=== PATIENT | female | born 1985 | race American Indian/Alaskan Native ===

== ENCOUNTER 2019-07-20 16:31 | Emergency (ER) | payer OTHER ==
[2019-07-20 17:35] VITALS: BP 102/56
[2019-07-20 18:46] LABS: Basophils # (Auto) 0.1 K/mm3 (0.0-0.1); Basophils % (Auto) 0.8 % (0.0-1.8); Eosinophils # (Auto) 0.1 K/mm3 (0.0-0.4); Eosinophils % (Auto) 1.3 % (0.0-4.3); Hematocrit 33.5 % (30.3-42.9); Hemoglobin 11.5 gm/dl (10.1-14.3); Lymphocytes # (Auto) 2.6 K/mm3 (1.2-5.4); Lymphocytes % (Auto) 24.5 % (13.4-35.0); Mean Corpuscular HGB Conc 34 % (30-34); Mean Corpuscular Volume 84 fl (79-97); Monocytes # (Auto) 0.4 K/mm3 (0.0-0.8); Monocytes % (Auto) 4.1 % (0.0-7.3); Platelet Count 218 K/mm3 (140-440); Red Blood Count 4.01 M/mm3 (3.65-5.03); Red Cell Distribution Width 14.9 % (13.2-15.2)
[2019-07-20 19:00] LABS: Alanine Aminotransferase 6 units/L (7-56); Albumin 4.6 g/dL (3.9-5); BUN/Creatinine Ratio 20; Blood Urea Nitrogen 10 mg/dL (7-17); Hemolysis Index 9
--- NOTE | 2019-07-20 19:13 | Emergency Department Report ---
ED Abdominal Pain HPI - General Chief Complaint: Abdominal Pain Stated Complaint: 3 MOS /ABD PAIN Time Seen by Provider: 07/20/19 18:47 Source: patient Mode of arrival: Ambulatory Limitations: No Limitations - History of Present Illness Initial Comments: There is a pleasant 34-year-old female presents to emergency department with a chief complaint of lower abdominal pain for the past 2 weeks. Patient describes as cramping. She reports associated dysuria, nausea, fatigue and breast tenderness. Last menstrual cycle was 04/07/2015. She did not take depressed S at home and this would be her eighth she is A0 L7 female VI RAINEY. SHE HAS A PAST MEDICAL HISTORY OF PSYCH AND MEDICATIONS INCLUDE HALDOL, SERTRALINE AND TRAZODONE. SHE DENIES ANY ALLERGIES TO MEDICATIONS. SHE HAS A PREVIOUS SURGERY OF HER LEFT KNEE. SHE NOTED ANY VAGINAL BLEEDING, FEVER, CHILLS, NIGHT SWEATS, HEADACHE, DIZZINESS, BLURRED VISION, CHEST PAIN, SHORTNESS OF BREATH ASSOCIATED SYMPTOMS. MD Complaint: abdominal pain Onset/Timin -: Gradual, week(s) Severity scale (0 -10): 7 Quality: cramping Consistency: intermittent Improves With: nothing Worsens With: nothing - Related Data Previous Rx's Medication Instructions Recorded Last Taken Type Doxylamine Succinate/Vit B6 1 each PO QHS #20 tablet. 07/20/19 Unknown Rx [Yaima Chaidez 10-10 mg Tablet] Nitrofurantoin Aurora/M-Cryst 100 mg PO Q12HR #14 capsule 07/20/19 Unknown Rx [Macrobid CAP] 147/Iron/Folic Acid 1 each PO DAILY #30 tablet 07/20/19 Unknown Rx [Azesco Tablet] Allergies Allergy/AdvReac Type Severity Reaction Status Date / Time No Known Allergies Allergy Unverified 07/20/19 16:32 ED Review of Systems ROS: Stated complaint: 3 MOS /ABD PAIN Other details as noted in HPI Comment: All other systems reviewed and negative Constitutional: denies: chills, fever Eyes: denies: eye pain, eye discharge, vision change ENT: denies: ear pain, throat pain Respiratory: denies: cough, shortness of breath, wheezing Cardiovascular: denies: chest pain, palpitations Endocrine: no symptoms reported Gastrointestinal: as per HPI, abdominal pain, nausea. denies: vomiting, diarrhea Genitourinary: as per HPI, dysuria. denies: urgency, discharge Musculoskeletal: denies: back pain, joint swelling, arthralgia Skin: denies: rash, lesions Neurological: denies: headache, weakness, paresthesias Psychiatric: denies: anxiety, depression Hematological/Lymphatic: denies: easy bleeding, easy bruising ED Past Medical Hx - Past Medical History Previous Medical History?: No - Surgical History Past Surgical History?: Yes Additional Surgical History: left knee surgery - Social History Smoking Status: Never Smoker Substance Use Type: None - Medications Home Medications: Home Medications Medication Instructions Recorded Confirmed Last Taken Type Doxylamine Succinate/Vit B6 1 each PO QHS #20 tablet.dr 07/20/19 Unknown Rx [Diclegis Dr 10-10 mg Tablet] Nitrofurantoin Aurora/M-Cryst 100 mg PO Q12HR #14 capsule 07/20/19 Unknown Rx [Macrobid CAP] 147/Iron/Folic Acid 1 each PO DAILY #30 tablet 07/20/19 Unknown Rx [Azesco Tablet] ED Physical Exam - General Limitations: No Limitations General appearance: alert, in no apparent distress - Head Head exam: Present: atraumatic, normocephalic - Eye Eye exam: Present: normal appearance, PERRL - ENT ENT exam: Present: normal exam, mucous membranes moist - Neck Neck exam: Present: normal inspection, full ROM. Absent: tenderness, meningismus - Respiratory Respiratory exam: Present: normal lung sounds bilaterally. Absent: respiratory distress, wheezes, rales, rhonchi, stridor, chest wall tenderness - Cardiovascular Cardiovascular Exam: Present: regular rate, normal rhythm. Absent: systolic murmur, diastolic murmur, rubs, gallop - GI/Abdominal GI/Abdominal exam: Present: soft, tenderness (mild suprapubic abdominal TTP. no rebound or guarding ), normal bowel sounds. Absent: distended, guarding, rebound, rigid - Extremities Exam Extremities exam: Present: normal inspection - Back Exam Back exam: Present: normal inspection - Neurological Exam Neurological exam: Present: alert, oriented X3 - Psychiatric Psychiatric exam: Present: normal affect, normal mood - Skin Skin exam: Present: warm, dry, intact, normal color. Absent: rash ED Course Vital Signs 07/20/19 17:32 Temperature 98.7 F Pulse Rate 70 Respiratory 16 Rate Blood Pressure 102/56 O2 Sat by Pulse 100 Oximetry ED Medical Decision Making - Lab Data Result diagrams: 07/20/19 18:20 07/20/19 18:20 Lab Results 07/20/19 07/20/19 07/20/19 Range/Units 18:20 18:20 18:20 WBC 10.7 (4.5-11.0) K/mm3 RBC 4.01 (3.65-5.03) M/mm3 Hgb 11.5 (10.1-14.3) gm/dl Hct 33.5 (30.3-42.9) % MCV 84 (79-97) fl MCH 29 (28-32) pg MCHC 34 (30-34) % RDW 14.9 (13.2-15.2) % Plt Count 218 (140-440) K/mm3 Lymph % (Auto) 24.5 (13.4-35.0) % Aurora % (Auto) 4.1 (0.0-7.3) % Eos % (Auto) 1.3 (0.0-4.3) % Baso % (Auto) 0.8 (0.0-1.8) % Lymph # 2.6 (1.2-5.4) K/mm3 Aurora # 0.4 (0.0-0.8) K/mm3 Eos # 0.1 (0.0-0.4) K/mm3 Baso # 0.1 (0.0-0.1) K/mm3 Seg Neutrophils % 69.3 (40.0-70.0) % Seg Neutrophils # 7.4 (1.8-7.7) K/mm3 Sodium 136 L (137-145) mmol/L Potassium 3.2 L (3.6-5.0) mmol/L Chloride 100.6 (98-107) mmol/L Carbon Dioxide 19 L (22-30) mmol/L Anion Gap 20 mmol/L BUN 10 (7-17) mg/dL Creatinine 0.5 L (0.7-1.2) mg/dL Estimated GFR > 60 ml/min BUN/Creatinine Ratio 20 % Glucose 108 H (65-100) mg/dL Calcium 9.0 (8.4-10.2) mg/dL Total Bilirubin 0.40 (0.1-1.2) mg/dL AST 18 (5-40) units/L ALT 6 L (7-56) units/L Alkaline Phosphatase 62 (35-129) units/L Total Protein 7.7 (6.3-8.2) g/dL Albumin 4.6 (3.9-5) g/dL Albumin/Globulin Ratio 1.5 % HCG, Qual Positive (Negative) Urine Color (Yellow) Urine Turbidity (Clear) Urine pH (5.0-7.0) Ur Specific [place] (1.003-1.030) Urine Protein (Negative) mg/dL Urine Glucose (UA) (Negative) mg/dL Urine Ketones (Negative) mg/dL Urine Blood (Negative) Urine Nitrite (Negative) Urine Bilirubin (Negative) Urine Urobilinogen (<2.0) mg/dL Ur Leukocyte Esterase (Negative) Urine WBC (Auto) (0.0-6.0) /HPF Urine RBC (Auto) (0.0-6.0) /HPF U Epithel Cells (Auto) (0-13.0) /HPF Urine Bacteria (Auto) (Negative) /HPF Urine Mucus /HPF 07/20/19 Range/Units 19:05 WBC (4.5-11.0) K/mm3 RBC (3.65-5.03) M/mm3 Hgb (10.1-14.3) gm/dl Hct (30.3-42.9) % MCV (79-97) fl MCH (28-32) pg MCHC (30-34) % RDW (13.2-15.2) % Plt Count (140-440) K/mm3 Lymph % (Auto) (13.4-35.0) % Aurora % (Auto) (0.0-7.3) % Eos % (Auto) (0.0-4.3) % Baso % (Auto) (0.0-1.8) % Lymph # (1.2-5.4) K/mm3 Aurora # (0.0-0.8) K/mm3 Eos # (0.0-0.4) K/mm3 Baso # (0.0-0.1) K/mm3 Seg Neutrophils % (40.0-70.0) % Seg Neutrophils # (1.8-7.7) K/mm3 Sodium (137-145) mmol/L Potassium (3.6-5.0) mmol/L Chloride (98-107) mmol/L Carbon Dioxide (22-30) mmol/L Anion Gap mmol/L BUN (7-17) mg/dL Creatinine (0.7-1.2) mg/dL Estimated GFR ml/min BUN/Creatinine Ratio % Glucose (65-100) mg/dL Calcium (8.4-10.2) mg/dL Total Bilirubin (0.1-1.2) mg/dL AST (5-40) units/L ALT (7-56) units/L Alkaline Phosphatase (35-129) units/L Total Protein (6.3-8.2) g/dL Albumin (3.9-5) g/dL Albumin/Globulin Ratio % HCG, Qual (Negative) Urine Color Yellow (Yellow) Urine Turbidity Slightly-cloudy (Clear) Urine pH 5.0 (5.0-7.0) Ur Specific [place] 1.031 H (1.003-1.030) Urine Protein <15 mg/dl (Negative) mg/dL Urine Glucose (UA) Neg (Negative) mg/dL Urine Ketones Neg (Negative) mg/dL Urine Blood Neg (Negative) Urine Nitrite Neg (Negative) Urine Bilirubin Neg (Negative) Urine Urobilinogen < 2.0 (<2.0) mg/dL Ur Leukocyte Esterase Neg (Negative) Urine WBC (Auto) 3.0 (0.0-6.0) /HPF Urine RBC (Auto) 4.0 (0.0-6.0) /HPF U Epithel Cells (Auto) 11.0 (0-13.0) /HPF Urine Bacteria (Auto) 1+ (Negative) /HPF Urine Mucus 2+ /HPF - Radiology Data Radiology results: report reviewed [facility] [address] [place] [address] Ultrasound Report Signed Patient: CLEVE BOONE MR#: [id number] : 1985 Acct:[id number] Age/Sex: 34 / F ADM Date: 07/20/19 Loc: ED Attending Dr: Ordering Physician: SHONNA RUSSO Date of Service: 07/20/19 Procedure(s): US OB >= 14 weeks Fetus Accession Number(s): [id number] cc: SHONNA RUSSO OBSTETRIC ULTRASOUND INDICATION: Pelvic pain COMPARISON: No prior relevant imaging studies are available for comparison. TECHNIQUE: Transabdominal imaging was performed. FINDINGS: Single viable intrauterine is identified. lie: Breech. Heart rate: 150 bpm. measurements are as follows: Biparietal diameter 3.4 cm, 16 weeks 3 days Head circumference 12.2 cm, 16 weeks 1 day Abdominal circumference 9.9 cm, 16 weeks 0 days Femur length 2.0 cm, 15 weeks 6 days Amniotic fluid index is subjectively within normal limits. No placental abnormalities are seen. Cervix is closed measuring 3-4 cm. CONCLUSION: Single viable intrauterine with sonographic gestational age of 16 weeks, 1 day. No abnormalities are identified. Signer Name: Carlos Aquino MD Signed: 07/20/2019 8:25 PM Workstation Name: [id number] Transcribed By: MUNA Dictated By: Carlos Aquino MD Electronically Authenticated By: Carlos Aquino MD Signed Date/Time: 07/20/192024 - Medical Decision Making Patient is nontoxic in no acute distress. Ultrasound shows a viable intrauterine measuring 16 weeks. Labs and urine returned relatively normal however patient was concerned about a potential UTI DT dysuria, urinary frequency and urinary urgency. There is a few white blood cells in her urine I will treat with Macrobid. Recommend starting vitamins and will start likely just for nausea. We'll give OB follow-up. Patient was instructed to return emergently changing worsening symptoms. All questions were answered. Did a lengthy discussion about the patient's psychiatric medications reports a calling her psychiatrist or the prescribing physician as soon as possible to determine the safety of using . Patient declined workup for STI and pelvic examination. She preferred to follow up with DISPATCH ASSOCIATE for this. - Differential Diagnosis threatened misscarriage, UTI, normal , ectopic Critical care attestation.: If time is entered above; I have spent that time in minutes in the direct care of this critically ill patient, excluding procedure time. ED Disposition Clinical Impression: Intrauterine , Dysuria Abdominal pain during Qualifiers: Trimester: second trimester Qualified Code(s): O26.892 - Other specified related conditions, second trimester; R10.9 - Unspecified abdominal pain Disposition: - TO HOME OR SELFCARE Is pt being admited?: No Does the pt Need Aspirin: No Condition: Stable Instructions: Abdominal Pain (ED) Prescriptions: Doxylamine Succinate/Vit B6 [Yaima Chaidez 10-10 mg Tablet] 1 each PO QHS #20 tablet. 147/Iron/Folic Acid [Azesco Tablet] 1 each PO DAILY #30 tablet Nitrofurantoin Aurora/M-Cryst [Macrobid CAP] 100 mg PO Q12HR #14 capsule Referrals: JUAN M MAYES MD [Staff Physician] - 3-5 Days Time of Disposition: 20:48
[2019-07-20 19:23] LABS: Bacteria,Urine 1+ /HPF (Negative); Bilirubin,Urine NEG (Negative); Blood,Urine NEG (Negative); Color,Urine Yellow (Yellow); Mucus,Urine 2+ /HPF; Protein,Urine <15 mg/dL mg/dL (Negative); Urobilinogen,Urine < 2.0 mg/dL (<2.0)
--- NOTE | 2019-07-20 20:30 | Ultrasound Report ---
OBSTETRIC ULTRASOUND INDICATION: Pelvic pain COMPARISON: No prior relevant imaging studies are available for comparison. TECHNIQUE: Transabdominal imaging was performed. FINDINGS: Single viable intrauterine is identified. lie: Breech. Heart rate: 150 bpm. measurements are as follows: Biparietal diameter 3.4 cm, 16 weeks 3 days Head circumference 12.2 cm, 16 weeks 1 day Abdominal circumference 9.9 cm, 16 weeks 0 days Femur length 2.0 cm, 15 weeks 6 days Amniotic fluid index is subjectively within normal limits. No placental abnormalities are seen. Cer vix is closed measuring 3-4 cm. CONCLUSION: Single viable intrauterine with sonographic gestational age of 16 weeks, 1 day. No abnormal ities are identified. Signer Name: Carlos Aquino MD Signed: 07/20/2019 8:25 PM Workstation Name: [id number]
== END 2019-07-20 22:00 | disposition home or self-care (01) ==
LOC: ED 16:31
DX: O26.892 Other specified pregnancy related conditions, second trimester (principal); R30.0 Dysuria; R10.30 Lower abdominal pain, unspecified; Z98.890 Other specified postprocedural states; Z79.899 Other long term (current) drug therapy; Z3A.16 16 weeks gestation of pregnancy
CPT/HCPCS: 36415; 76805; 80053; 81001; 84702; 84703; 85025

== ENCOUNTER 2020-01-02 15:45 | Inpatient (IN) | payer OTHER ==
[2020-01-02] MEDS ORDERED: OXYTOCIN 20 UNIT/1000ML DRIP 40,000 MILLIUNITS/2,000 ML BAG IV ONE (16:01)
[2020-01-02] MEDS ORDERED: MINERAL OIL 30 ML ORAL LIQD ONE (16:01)
[2020-01-02] MEDS ORDERED: LIDOCAINE (2%) 20 MG/1 ML VIAL 20 ML MDV INFILTRATI ONE ×2 (16:01→16:52)
[2020-01-02] MEDS ORDERED: LACTATED RINGERS 1,000 ML ONE (16:02)
[2020-01-02] MEDS ORDERED: AMPICILLIN/NS 2 GM/100 ML 2 GM/100 ML BAG IV ONE ×2 (16:03→18:00)
[2020-01-02] MEDS ORDERED: NalbUPHINE 10 MG/1 ML INJ IV PRN (16:52)
[2020-01-02] MEDS ORDERED: MINERAL OIL 30 ML ORAL LIQD PO PRN (16:52)
[2020-01-02] MEDS ORDERED: fentaNYL 100 MCG/2 ML INJ IV PRN (16:52)
[2020-01-02] MEDS ORDERED: PROMETHAZINE 25 MG TAB PO PRN ×2 (16:52→18:26)
[2020-01-02] MEDS ORDERED: ePHEDrine SULFATE 50 MG/1 ML INJ IV PRN ×2 (16:52→17:26)
[2020-01-02] MEDS ORDERED: TERBUTALINE 1 MG/1 ML INJ SUB-Q PRN (16:52)
[2020-01-02] MEDS ORDERED: NALOXONE 0.4 MG/1 ML INJ IV PRN (16:52)
[2020-01-02] MEDS ORDERED: TERBUTALINE 1 MG/1 ML INJ IVP PRN (16:52)
[2020-01-02] MEDS ORDERED: BUTORPHANOL 2 MG/1 ML INJ IV PRN (16:52)
[2020-01-02] MEDS ORDERED: OXYTOCIN DRIP 30 UNITS/500 ML BAG IV SCH ×2 (17:00)
[2020-01-02] MEDS ORDERED: OXYTOCIN 20 UNIT/1000ML DRIP 20 UNITS/1,000 ML BAG IV SCH (17:00)
[2020-01-02] MEDS ORDERED: LACTATED RINGERS 1,000 ML IV SCH (17:00)
[2020-01-02] MEDS ORDERED: DEXMEDETOMIDINE 200 MCG/2 ML VIAL IV ONE (17:01)
[2020-01-02] MEDS ORDERED: fentaNYL-BUPIV 2 MCG/ML-0.125% 200 MCG/100 ML BAG EPIDURAL ONE (17:02)
--- NOTE | 2020-01-02 17:02 | Progress Note ---
Assessment and Plan A/P IUP 39+6 weeks no care GBS unknown offer epirdural expect vaginal delivery Subjective - Subjective Date of service: 01/02/20 Principal diagnosis: labor Patient reports: movement normal, contractions, no new complaints, no loss of fluid, no vaginal bleeding Objective - Vital Signs Vital Signs: Vital Signs - 12hr 01/02/20 01/02/20 01/02/20 16:00 16:09 16:43 Temperature 99.3 F Pulse Rate 79 80 75 Respiratory 19 Rate Blood Pressure 140/70 145/69 Blood Pressure 140/70 [Left] O2 Sat by Pulse 99 Oximetry - Exam Breasts: normal Cardiovascular: Regular rate, Normal S1 Lungs: Clear to auscultation, Normal air movement Abdomen: Present: normal appearance, soft, normal bowel sounds. Absent: distention, tenderness, guarding Uterus: Present: normal, firm, fundal height above umbilicus. Absent: bogginess, tenderness FHR: category 1 Cervical Dilatation: 6 Extremities: normal Deep Tendon Reflex Grade: Normal +2
[2020-01-02] MEDS ORDERED: NALOXONE 2 MG/2 ML INJ IV PRN (17:26)
--- NOTE | 2020-01-02 17:26 | Anesthesia Consultation ---
Anesthesia Consult and Med Hx Date of service: 01/02/20 - Airway Anesthetic Teeth Evaluation: Good ROM Head & Neck: Adequate Mental/Hyoid Distance: Adequate Mallampati Class: Class II Intubation Access Assessment: Probably Good - Pulmonary Exam CTA: Yes - Cardiac Exam Cardiac Exam: RRR - Pre-Operative Health Status ASA Pre-Surgery Classification: ASA2 Proposed Anesthetic Plan: Epidural - Central Nervous System Hx Psychiatric Problems: Yes - Gastrointestinal Hx Gastroesophageal Reflux Disease: Yes
[2020-01-02 18:00] LABS: Basophils % (Auto) 0.3 % (0.0-1.8); Eosinophils # (Auto) 0.2 K/mm3 (0.0-0.4); Eosinophils % (Auto) 1.9 % (0.0-4.3); Hematocrit 35.2 % (30.3-42.9); Hemoglobin 11.3 gm/dl (10.1-14.3); Lymphocytes # (Auto) 2.1 K/mm3 (1.2-5.4); Lymphocytes % (Auto) 19.1 % (13.4-35.0); Mean Corpuscular HGB Conc 32 % (30-34); Mean Corpuscular Volume 76 fl (79-97); Monocytes # (Auto) 0.8 K/mm3 (0.0-0.8); Monocytes % (Auto) 7.1 % (0.0-7.3); Platelet Count 134 K/mm3 (140-440); Red Blood Count 4.63 M/mm3 (3.65-5.03); Red Cell Distribution Width 17.8 % (13.2-15.2)
[2020-01-02] MEDS ORDERED: fentaNYL-BUPIV 2 MCG/ML-0.125% 200 MCG/100 ML BAG EPIDURAL SCH (18:00)
[2020-01-02] MEDS ORDERED: ONDANSETRON 4 MG/2 ML INJ IV PRN (18:26)
[2020-01-02] MEDS ORDERED: MAGNESIUM HYDROXIDE (MOM) ORAL LIQD UDC PO PRN (18:26)
[2020-01-02] MEDS ORDERED: diphenhydrAMINE 25 MG CAP PO PRN (18:26)
[2020-01-02] MEDS ORDERED: PROMETHAZINE 25 MG RECT SUPP PR PRN (18:26)
[2020-01-02] MEDS ORDERED: WITCH HAZEL/ GLYCERIN PAD TP PRN (18:26)
[2020-01-02] MEDS ORDERED: ACETAMINOPHEN 325 MG TAB PO PRN (18:26)
[2020-01-02] MEDS ORDERED: LANOLIN/ZINC/DIMETHICONE (LANSINOH) 7 GM TP PRN (18:26)
[2020-01-02] MEDS ORDERED: HYDROcodone/ACETAMINOPHEN 5-325 MG TAB PO PRN (18:26)
--- NOTE | 2020-01-02 18:30 | Procedure Note ---
OB Delivery Note - Delivery Date of Delivery: 01/02/20 Surgeon: AALIYAH BLACKBURN Estimated blood loss: 100cc - Vaginal Delivery presentation: vertex Delivery position: OP Intrapartum events: no care Delivery induction: none Delivery augmentation: rupture of membranes Delivery monitor: external FHT, external uterine Route of delivery: Delivery placenta: spontaneous Delivery cord: 3 umbilical vessels Delivery laceration: 1st degree Delivery repair: vicryl Anesthesia: epidural Delivery comments: Patient was noted to be c/c/e and delivered a viable male in direct op at 1814 with a weight og 8 pounds 1 oz with Apgars 8 and 9. The baby placed on the muscogees chest with scuction with nurse. the cord was clamped and cut. The placenta delivered intact with 3 vessel cord at 181. EBL 100 cc. The perineum observed with periurethal tear not bleeding and repaired a 1st degree with 2-0 vicryl. Patient tolerated procedure well. - A at 1 minute: 8 at 5 minutes: 9 Gender: Male (8 pounds 1 oz)
[2020-01-02] MEDS: DOCUSATE SODIUM 100 MG CAP PO SCH (22:00)
[2020-01-03] MEDS: IBUPROFEN 600 MG TAB PO SCH ×3 (01:00→12:00)
[2020-01-03] MEDS: oxyCODONE /ACETAMINOPHEN 5-325MG TAB PO PRN (04:45)
[2020-01-03] MEDS ORDERED: MEASLES, MUMPS & RUBELLA 12,500 UNIT/0.5 ML VACCINE SUB-Q ONE (06:00)
[2020-01-03] MEDS ORDERED: DIPHtheria,PERTUSSIS(ACELL),TETANUS VACCINE/PF 0.5 ML VIAL IM ONE (06:00)
[2020-01-03 06:36] LABS: Hematocrit 31.5 % (30.3-42.9); Hemoglobin 10.2 gm/dl (10.1-14.3)
--- NOTE | 2020-01-03 08:38 | Progress Note ---
Assessment and Plan A: PPD1 s/p No care, unstable housing Vital signs and labs stable P: Routine pp care Case management consult Anticipate d/c to home on PPD2 Subjective - Subjective Date of service: 01/03/20 Principal diagnosis: labor Interval history: PPD1 s/p Patient reports: appetite normal, voiding normally, pain well controlled, ambulating normally, other (large bleeding at 0600 in the toilet, no current trickling) [place]: doing well, bottle feeding Objective - Vital Signs Latest vital signs: Vital Signs Temp Pulse Resp BP BP BP Pulse Ox 01/03/20 07:36 98.4 F 70 18 131/77 99 01/03/20 04:23 98.0 F 73 16 124/54 98 01/03/20 00:19 98.5 F 86 18 115/64 96 01/02/20 21:05 98.8 F 78 18 128/58 100 01/02/20 20:42 98.1 F 79 124/59 124/59 01/02/20 20:07 78 129/71 01/02/20 19:51 80 126/61 01/02/20 19:49 18 114/60 01/02/20 19:36 77 114/60 01/02/20 19:22 74 107/56 01/02/20 19:06 78 106/58 01/02/20 18:52 75 108/58 01/02/20 18:45 76 99/54 01/02/20 18:38 74 87/51 05 18:36 73 86/43 01/02/20 18:22 74 94/46 01/02/20 18:08 78 107/59 01/02/20 18:02 80 111/52 01/02/20 17:51 78 97/49 01/02/20 17:36 78 113/56 01/02/20 17:34 79 112/57 01/02/20 17:32 89 99/50 01/02/20 17:30 98.9 F 87 112/60 01/02/20 17:28 80 123/59 01/02/20 17:26 76 124/60 01/02/20 17:24 75 133/62 01/02/20 17:22 90 149/69 01/02/20 17:21 76 158/71 01/02/20 17:18 107 H 146/110 01/02/20 17:15 107 H 141/102 01/02/20 17:14 86 140/70 01/02/20 17:12 103 H 126/72 01/02/20 17:10 93 H 132/80 01/02/20 16:43 75 145/69 01/02/20 16:09 80 140/70 01/02/20 16:00 99.3 F 79 19 140/70 99 Intake and Output 01/02/20 01/03/20 01/03/20 23:59 07:59 15:59 Intake Total 720 120 Output Total 400 Balance 320 120 Intake: Oral 120 Intake, Free Water 720 Output: Urine 400 Void 400 Other: Total, Intake Amount 120 Total, Output Amount 400 Weight 197 lb Estimated Blood Loss 200 - Exam Lungs: Present: Normal air movement Abdomen: Present: soft. Absent: distention Uterus: Present: firm, fundal height below umbilicus. Absent: bogginess Extremities: Present: normal - Labs Labs: Abnormal lab results 01/02/20 Range/Units 16:25 WBC 11.1 H (4.5-11.0) K/mm3 MCV 76 L (79-97) fl MCH 24 L (28-32) pg RDW 17.8 H (13.2-15.2) % Plt Count 134 L (140-440) K/mm3 Seg Neutrophils % 71.6 H (40.0-70.0) % Seg Neutrophils # 7.9 H (1.8-7.7) K/mm3
[2020-01-03] MEDS: DOCUSATE SODIUM 100 MG CAP PO SCH ×2 (09:09→22:20)
[2020-01-03] MEDS ORDERED: PRENATAL VIT27-FE FUMARATE-FOLIC ACID VIT TAB PO SCH (10:00)
[2020-01-03 10:28] LABS: Amphetamine Screen,Urine PRESUMPTIVE NEGATIVE; Benzodiazepines Screen,Urine PRESUMPTIVE NEGATIVE; Cannabinoid Screen,Urine PRESUMPTIVE NEGATIVE; Methadone Screen,Urine PRESUMPTIVE NEGATIVE; Opiate Screen,Urine PRESUMPTIVE NEGATIVE
[2020-01-03 10:54] LABS: Cocaine Screen,Urine PRESUMPTIVE POSITIVE
[2020-01-04] MEDS: IBUPROFEN 600 MG TAB PO SCH ×2 (00:15→05:42)
--- NOTE | 2020-01-04 08:26 | Progress Note ---
Assessment and Plan A: PPD2 s/p No care, UDS positive for cocaine Vital signs and labs stable P: Routine pp care Discharge to home today Infant d/c to be held per DFACS Subjective - Subjective Date of service: 01/04/20 Principal diagnosis: s/p Interval history: PPD2 s/p . S/p case management consult, infant's discharge to be held, disp with DFACS. Patient reports: appetite normal, voiding normally, pain well controlled, ambulating normally [place]: doing well, bottle feeding Objective - Vital Signs Latest vital signs: Vital Signs Temp Pulse Resp BP Pulse Ox 01/04/20 00:45 17 98 01/04/20 00:38 97.9 F 18 131/84 01/03/20 16:04 98.1 F 76 18 120/77 99 01/03/20 12:22 98.4 F 76 18 124/78 97 Intake and Output 01/03/20 01/04/20 01/04/20 23:59 07:59 15:59 Intake Total 900 Balance 900 Intake: Oral 360 Intake, Free Water 540 Other: Total, Intake Amount 360 # Voids Void 1 1 - Exam Lungs: Present: Normal air movement Abdomen: Present: soft. Absent: distention Uterus: Present: firm, fundal height below umbilicus. Absent: bogginess Extremities: Present: normal
--- NOTE | 2020-01-04 08:30 | Discharge Summary ---
Providers - Providers Date of Admission: 01/02/20 18:54 Date of discharge: 01/04/20 Attending physician: AALIYAH BLACKBURN MD 01/03/20 08:36 Consult to Case Management [CONS] Routine Services Needed at Discharge: Diesel Locomotive Engineer Notified:: N[place]ia Comment:: Unstable housing, no care Primary care physician: [employer] PRESCRIPTION CLERK Hospitalization Reason for admission: active labor, IUP at term Delivery: Episiotomy: none Laceration: 1st degree Other procedures: none complications: none Discharge diagnosis: IUP at term delivered Hospital course: Pt presented in active labor with no care. Delivery and course were uncomplicated. She was found to have a urine drug screen positive for cocaine. She met discharge criteria on PPD2 and was discharged in stable condition. Case management/DFACS held infant discharge. Condition at discharge: Good Disposition: DC-01 TO HOME OR SELFCARE Plan - Discharge Medications Prescriptions: Ibuprofen [Motrin 600 MG tab] 600 mg PO Q6H #60 tablet - Provider Discharge Summary Additional instructions: [] Smoking cessation referral if applicable(refer to patient education folder for contact #) [] Refer to [facility]'s [facility] Booklet Call your doctor immediately for: * Fever > 100.5 * Heavy vaginal bleeding ( >1 pad per hour) * Severe persistent headache * Shortness of breath * Reddened, hot, painful area to leg or breast * Drainage or odor from incision. * Keep incision clean and dry at all times and follow doctor's instructions regarding bathing/showering - Follow up plan Follow up: AALIYAH BLACKBURN MD [Staff Physician] - 14 Days (Please call [facility] human resources trainer to schedule appointment.)
[2020-01-04 09:32] VITALS: BP 126/63
[2020-01-04] MEDS: DOCUSATE SODIUM 100 MG CAP PO SCH (14:10)
[2020-01-04] MEDS: oxyCODONE /ACETAMINOPHEN 5-325MG TAB PO PRN (14:10)
== END 2020-01-04 15:00 | disposition home or self-care (01) | DRG 775 ==
LOC: TRG 15:45 → APU 15:51 → LD 15:56 → TRG 18:53 → LD 18:54 → OB 22:26
PROVIDERS: ADMIT Obstetrics & Gynecology; ATTEND Obstetrics & Gynecology
PROC: 10E0XZZ Delivery of Products of Conception, External Approach (ICD-10-PCS; principal; 2020-01-02)
PROC: 0HQ9XZZ Repair Perineum Skin, External Approach (ICD-10-PCS; 2020-01-02)
DX: O70.9 Perineal laceration during delivery, unspecified (principal); Z3A.39 39 weeks gestation of pregnancy; Z37.0 Single live birth
CPT/HCPCS: 36415; 80307; 85014; 85018; 85025; 86592; 86706; 86762; 86850; 86900; 86901; 87806; 88307; G0378; J0290; J2590; J3490; J7120

== ENCOUNTER 2020-11-13 16:54 | Emergency (ER) | payer SELFPAY ==
[2020-11-13 17:12] VITALS: BP 134/71
--- NOTE | 2020-11-13 18:25 | Emergency Department Report ---
ED ENT HPI - General Chief complaint: Earache Stated complaint: EAR PAIN Time Seen by Provider: 11/13/20 18:15 Source: patient Mode of arrival: Ambulatory Limitations: No Limitations - History of Present Illness Initial comments: Patient is a 35-year-old female that presents emergency room with complaints of left ear pain. Patient states started 3 days ago. Patient states her ear is tender to touch. Patient states the pain is an 8 out of 10. Patient states the pain is better with rest and worse with palpation. Patient denies fever and chills. Patient denies cough. Patient denies recent swimming. Patient states she has a slight amount of discharge from her left ear. Patient denies recent travel. Patient denies recent international travel. Patient denies exposure to the novel coronavirus. Patient denies sick contacts. Patient denies fever and chills. Patient denies cough. Patient denies diarrhea. Patient denies coming in contact with anybody with symptoms of the novel coronavirus. MD complaint: ear pain -: Sudden Location: L ear Severity: severe Severity scale (0 -10): 8 Quality: stabbing Consistency: constant Improves with: rest Worsens with: other Associated Symptoms: discharge from ear. denies: fever, cough, gum swelling, toothache, pain with swallowing, sore throat, tinnitus, hearing loss, rhinorrhea - Related Data Previous Rx's Medication Instructions Recorded Last Taken Type Ibuprofen [Motrin 600 MG tab] 600 mg PO Q6H #60 tablet 01/04/20 Unknown Rx Ofloxacin 0.3% [Floxin 0.3% Otic] 10 drops OT DAILY 7 Days #1 bottle 11/13/20 Unknown Rx Allergies Allergy/AdvReac Type Severity Reaction Status Date / Time No Known Allergies Allergy Verified 11/13/20 17:09 ED Dental HPI - General Chief complaint: Earache Stated complaint: EAR PAIN Time Seen by Provider: 11/13/20 18:20 Source: patient Mode of arrival: Ambulatory Limitations: No Limitations - Related Data Previous Rx's Medication Instructions Recorded Last Taken Type Ibuprofen [Motrin 600 MG tab] 600 mg PO Q6H #60 tablet 01/04/20 Unknown Rx Ofloxacin 0.3% [Floxin 0.3% Otic] 10 drops OT DAILY 7 Days #1 bottle 11/13/20 Unknown Rx Allergies Allergy/AdvReac Type Severity Reaction Status Date / Time No Known Allergies Allergy Verified 11/13/20 17:09 ED Review of Systems ROS: Stated complaint: EAR PAIN Other details as noted in HPI Constitutional: denies: chills, fever Eyes: denies: eye pain, eye discharge, vision change ENT: denies: ear pain, throat pain Respiratory: denies: cough, shortness of breath, wheezing Cardiovascular: denies: chest pain, palpitations Endocrine: no symptoms reported Gastrointestinal: denies: abdominal pain, nausea, diarrhea Genitourinary: denies: urgency, dysuria, discharge Musculoskeletal: denies: back pain, joint swelling, arthralgia Skin: denies: rash, lesions Neurological: denies: headache, weakness, paresthesias Psychiatric: denies: anxiety, depression Hematological/Lymphatic: denies: easy bleeding, easy bruising ED Past Medical Hx - Past Medical History Previous Medical History?: No - Surgical History Past Surgical History?: Yes Additional Surgical History: left knee surgery - Family History Family history: no significant - Social History Smoking Status: Never Smoker Substance Use Type: None - Medications Home Medications: Home Medications Medication Instructions Recorded Confirmed Last Taken Type Ibuprofen [Motrin 600 MG tab] 600 mg PO Q6H #60 tablet 01/04/20 Unknown Rx Ofloxacin 0.3% [Floxin 0.3% Otic] 10 drops OT DAILY 7 Days #1 bottle 11/13/20 Unknown Rx ED Physical Exam - General Limitations: No Limitations General appearance: alert, in no apparent distress - Head Head exam: Present: atraumatic, normocephalic - Eye Eye exam: Present: normal appearance - ENT ENT exam: Present: mucous membranes moist, TM's normal bilaterally, other - Expanded ENT Exam Expanded Ear exam: Present: other (Inflammation of the left ear canal with discharge.) Mouth exam: Present: normal external inspection Teeth exam: Present: normal inspection Throat exam: Positive: normal inspection - Neck Neck exam: Present: normal inspection, full ROM. Absent: tenderness, meningismus - Respiratory Respiratory exam: Present: normal lung sounds bilaterally. Absent: respiratory distress, wheezes, rales - Cardiovascular Cardiovascular Exam: Present: regular rate, normal rhythm. Absent: systolic murmur, diastolic murmur, rubs, gallop - GI/Abdominal GI/Abdominal exam: Present: soft, normal bowel sounds - Extremities Exam Extremities exam: Present: normal inspection - Back Exam Back exam: Present: normal inspection - Neurological Exam Neurological exam: Present: alert, oriented X3 - Psychiatric Psychiatric exam: Present: normal affect, normal mood - Skin Skin exam: Present: warm, dry, intact, normal color. Absent: rash ED Course Vital Signs 11/13/20 17:08 Temperature 98.1 F Pulse Rate 67 Respiratory 16 Rate Blood Pressure 134/71 O2 Sat by Pulse 99 Oximetry - Reevaluation(s) Reevaluation #1: I discussed all results and clinical findings with patient. I discussed plan of care with patient. Patient agrees with plan of care. Patient is stable for discharge. Patient will be discharged home. Patient given discharge instructions. Patient voiced understanding of discharge instructions. 11/13/20 18:27 ED Medical Decision Making - Medical Decision Making Patient is a 35-year-old female who presents emergency room with complaints of left ear pain. Patient had a full exam and the exam reveals left otitis externa. Patient is allergic to any medications. Patient's last menstrual period 3 weeks ago. Patient will be given eardrops. Patient given discharge instructions. Patient stable for discharge. Patient not require any further emergency medical treatment. . - Differential Diagnosis Otalgia, otitis media, otitis externa, swimmer's ear. Critical care attestation.: If time is entered above; I have spent that time in minutes in the direct care of this critically ill patient, excluding procedure time. ED Disposition Clinical Impression: Ear pain, left Otitis externa, left Qualifiers: Otitis externa type: unspecified type Chronicity: acute Qualified Code(s): H60.502 - Unspecified acute noninfective otitis externa, left ear Disposition: TO HOME OR SELFCARE Is pt being admited?: No Does the pt Need Aspirin: No Condition: Stable Instructions: Ear Drops, Adult, [id number], Otitis Externa Additional Instructions: Patient to follow-up with primary care in 2 to 3 days. Patient to avoid submerging of her left ear. Patient to try to keep the left ear clean and dry.. Patient to rest. Patient to increase water. Patient to avoid strenuous exercise or heavy lifting until cleared by SIMULATION DEVELOPER. Patient to take Tylenol or ibuprofen as needed for pain. Patient to take meds as directed. Patient to return to the ER if condition worsens, changes or new symptoms arise. Prescriptions: Ofloxacin 0.3% [Floxin 0.3% Otic] 10 drops OT DAILY 7 Days #1 bottle Referrals: PRIMARY CAREMD [Primary Care Provider] - 2-3 Days CHERI BHATIA MD [Staff Physician] - 2-3 Days Time of Disposition: 18:31
== END 2020-11-13 18:50 | disposition home or self-care (01) ==
LOC: ED 16:54
DX: H60.502 Unspecified acute noninfective otitis externa, left ear (principal); H92.02 Otalgia, left ear; Z79.899 Other long term (current) drug therapy; Z98.890 Other specified postprocedural states
CPT/HCPCS: 99282

== ENCOUNTER 2022-01-03 19:09 | Emergency (ER) | payer SELFPAY ==
--- NOTE | 2022-01-03 20:04 | XRay Report ---
CHEST 2 VIEWS INDICATION / CLINICAL INFORMATION: chest pain. COMPARISON: None available. FINDINGS: SUPPORT DEVICES: None. HEART / MEDIASTINUM: No significant abnormality. LUNGS / PLEURA: No significant pulmonary or pleural abnormality. No pneumothorax. ADDITIONAL FINDINGS: No significant additional findings. IMPRESSION: 1. No acute findings. Signer Name: Thanh Elias MD Signed: 01/03/2022 8:00 PM Workstation Name: [id number]
[2022-01-03 23:22] VITALS: BP 129/75
[2022-01-03] MEDS ORDERED: ASPIRIN 325 MG TAB PO ONE (23:37)
[2022-01-03] MEDS ORDERED: diphenhydrAMINE 25 MG CAP PO ONE (23:54)
[2022-01-03] MEDS ORDERED: predniSONE 20 MG TAB PO ONE (23:54)
[2022-01-03] MEDS ORDERED: FAMOTIDINE 20 MG TAB PO ONE (23:54)
[2022-01-04 00:25] LABS: Basophils % (Auto) 0.3 % (0.0-1.8); Eosinophils # (Auto) 0.3 K/mm3 (0.0-0.4); Eosinophils % (Auto) 4.4 % (0.0-4.3); Hematocrit 36.4 % (30.3-42.9); Hemoglobin 11.9 gm/dl (10.1-14.3); Lymphocytes # (Auto) 2.7 K/mm3 (1.2-5.4); Mean Corpuscular HGB Conc 33 % (30-34); Mean Corpuscular Volume 76 fl (79-97); Monocytes # (Auto) 0.4 K/mm3 (0.0-0.8); Monocytes % (Auto) 5.2 % (0.0-7.3); Platelet Count 152 K/mm3 (140-440); Red Blood Count 4.78 M/mm3 (3.65-5.03); Red Cell Distribution Width 14.6 % (13.2-15.2)
[2022-01-04 00:49] LABS: Alanine Aminotransferase 9 units/L (7-56); Albumin 4.6 g/dL (3.9-5); Blood Urea Nitrogen 8 mg/dL (7-17); Calcium 8.8 mg/dL (8.4-10.2); Hemolysis Index 6
[2022-01-04 00:53] LABS: BUN/Creatinine Ratio 11
--- NOTE | 2022-01-04 01:15 | Emergency Department Report ---
ED Chest Pain HPI - General Chief Complaint: Chest Pain Stated Complaint: CHEST PAIN PUI?: No Source: patient Mode of arrival: Ambulatory Limitations: No Limitations - History of Present Illness Initial Comments: Patient is a 36-year-old -[place] female with no past medical history who presents to the ED with persistent intermittent anterior chest chest wall pain for the last 5 months, worse with lifting and palpation. Patient also states that she has been taking [id number] medication with no relief. Patient states that prior to arrival in the ED the pain got worse after heavy lifting at work. Patient states that the pain radiates to the epigastric area occasionally. Patient denies shortness of breath, dizziness, syncope, headache, nausea and vomiting, abdominal pain, cough, sore throat, neck pain, headache, change in vision, fever and chills, numbness and tingling or weakness of upper extremities bilaterally. MD Complaint: chest pain -: Gradual, month(s) (5) Onset: during exertion, other (Heavy lifting) Pain Location: left chest Pain Radiation: none Severity: moderate Severity scale (0 -10): 5 Quality: aching, sharp Consistency: intermittent Improves With: rest Worsens With: exertion, inspiration, palpation, movement Context: other (Heavy lifting at work) re: denies: nausea, vomting, diaphoresis, dyspnea, sense of impending doom Other Symptoms: denies: cough, fever, syncope, rash, acid taste in mouth, leg swelling, palpitations, burping Treatments Prior to Arrival: none Aspirin use within the Past 7 Days: (0) No - Related Data On Oral Contraceptives: No Previous Rx's Medication Instructions Recorded Last Taken Type Ibuprofen [Motrin 600 MG tab] 600 mg PO Q6H #60 tablet 01/04/20 Unknown Rx Ofloxacin 0.3% [Floxin 0.3% Otic] 10 drops OT DAILY 7 Days #1 bottle 11/13/20 Unknown Rx Famotidine [Pepcid] 20 mg PO BID #60 tablet 01/04/22 Unknown Rx Ibuprofen [Motrin] 600 mg PO Q8H PRN #30 tablet 01/04/22 Unknown Rx diphenhydrAMINE [Benadryl CAP] 25 mg PO Q6HR PRN #30 capsule 01/04/22 Unknown Rx predniSONE [Deltasone] 40 mg PO QDAY #10 tab 01/04/22 Unknown Rx Allergies Allergy/AdvReac Type Severity Reaction Status Date / Time No Known Allergies Allergy Verified 11/13/20 17:09 Heart Score - HEART Score History: Slightly suspicious EKG: Normal Age: < 45 Risk factors: No known risk factors Troponin: < normal limit HEART Score: 0 - EKG Read Time Time EKG Completed: 19:31 EKG Read Time: 19:42 - Critical Actions Critical Actions: 0-3 pts:0.9-1.7%risk of adverse cardiac event.Candidate for d ischarge ED Review of Systems ROS: Stated complaint: CHEST PAIN Other details as noted in HPI Constitutional: denies: chills, fever Eyes: denies: eye pain, eye discharge, vision change ENT: denies: ear pain, throat pain Respiratory: denies: cough, shortness of breath, wheezing Cardiovascular: chest pain (Anterior chest pain). denies: palpitations Endocrine: no symptoms reported Gastrointestinal: denies: abdominal pain, nausea, vomiting, diarrhea Genitourinary: denies: urgency, dysuria, discharge Musculoskeletal: denies: back pain, joint swelling, arthralgia Skin: denies: rash, lesions Neurological: denies: headache, weakness, paresthesias Psychiatric: denies: anxiety, depression Hematological/Lymphatic: denies: easy bleeding, easy bruising ED Past Medical Hx - Past Medical History Previous Medical History?: No - Surgical History Past Surgical History?: Yes Additional Surgical History: left knee surgery - Social History Smoking Status: Current Every Day Smoker Substance Use Type: None - Medications Home Medications: Home Medications Medication Instructions Recorded Confirmed Last Taken Type Ibuprofen [Motrin 600 MG tab] 600 mg PO Q6H #60 tablet 01/04/20 Unknown Rx Ofloxacin 0.3% [Floxin 0.3% Otic] 10 drops OT DAILY 7 Days #1 bottle 11/13/20 Unknown Rx Famotidine [Pepcid] 20 mg PO BID #60 tablet 01/04/22 Unknown Rx Ibuprofen [Motrin] 600 mg PO Q8H PRN #30 tablet 01/04/22 Unknown Rx diphenhydrAMINE [Benadryl CAP] 25 mg PO Q6HR PRN #30 capsule 01/04/22 Unknown Rx predniSONE [Deltasone] 40 mg PO QDAY #10 tab 01/04/22 Unknown Rx ED Physical Exam - General Limitations: No Limitations General appearance: alert, in no apparent distress - Head Head exam: Present: atraumatic, normocephalic, normal inspection - Eye Eye exam: Present: normal appearance, PERRL, EOMI Pupils: Present: normal accommodation - ENT ENT exam: Present: normal exam, normal orophraynx, mucous membranes moist, TM's normal bilaterally, normal external ear exam - Neck Neck exam: Present: normal inspection, full ROM. Absent: tenderness - Respiratory Respiratory exam: Present: normal lung sounds bilaterally, chest wall tenderness (Palpable reproducible anterior chest wall tenderness). Absent: respiratory distress, wheezes, rales, stridor, accessory muscle use, decreased breath sounds, prolonged expiratory - Cardiovascular Cardiovascular Exam: Present: regular rate, normal rhythm, normal heart sounds. Absent: systolic murmur, diastolic murmur, rubs, gallop - GI/Abdominal GI/Abdominal exam: Present: soft, normal bowel sounds. Absent: tenderness, guarding, rigid, hyperactive bowel sounds, hypoactive bowel sounds, organomegaly - Extremities Exam Extremities exam: Present: normal inspection, full ROM, normal capillary refill - Back Exam Back exam: Present: normal inspection, full ROM. Absent: tenderness, CVA tenderness (R), CVA tenderness (L), muscle spasm, paraspinal tenderness, vertebral tenderness - Neurological Exam Neurological exam: Present: alert, oriented X3 - Psychiatric Psychiatric exam: Present: normal affect, normal mood, anxious - Skin Skin exam: Present: warm, dry, intact, normal color. Absent: rash ED Course Vital Signs 01/03/22 19:38 Temperature 98.6 F Pulse Rate 89 Respiratory 16 Rate Blood Pressure 129/75 O2 Sat by Pulse 99 Oximetry ED Medical Decision Making - Lab Data Result diagrams: 01/04/22 00:08 01/04/22 00:08 - EKG Data EKG shows normal: sinus rhythm Rate: normal - EKG Data Interpretation: normal EKG 01/06/22 07:02 EKG shows normal sinus rhythm with a ventricular rate of [address] or T wave abnormalities. - Radiology Data [facility] [address] [place] [address] XRay Report Signed Patient: CLEVE BOONE MR#: [id number] : 1985 Acct:[id number] Age/Sex: 36 / F ADM Date: 01/03/22 Loc: ED Attending Dr: Ordering Physician: DAILY GIVENS MD Date of Service: 01/03/22 Procedure(s): XR chest routine 2V Accession Number(s): [id number] cc: DAILY GIVENS MD Fluoro Time In Minutes: CHEST 2 VIEWS INDICATION / CLINICAL INFORMATION: chest pain. COMPARISON: None available. FINDINGS: SUPPORT DEVICES: None. HEART / MEDIASTINUM: No significant abnormality. LUNGS / PLEURA: No significant pulmonary or pleural abnormality. No pneumothorax. ADDITIONAL FINDINGS: No significant additional findings. IMPRESSION: 1. No acute findings. Signer Name: Thanh Arellano MD Signed: 01/03/2022 8:00 PM Workstation Name: [id number] Transcribed By: LEONARDO Dictated By: COBY ARELLANO MD Electronically Authenticated By: COBY ARELLANO MD Signed Date/Time: 01/03/221999 DD/ 99 TD/TT: Print Cancel - Medical Decision Making This is a 36-year-old -[place] female with no past medical history who presents to the ED with persistent intermittent anterior chest chest wall pain for the last 5 months, worse with lifting and palpation. Patient also states that she has been taking [id number] medication with no relief. Patient states that prior to arrival in the ED the pain got worse after heavy lifting at work. Patient states that the pain radiates to the epigastric area occasio j luis. In the ED, patient is alert and oriented x3 and is not in any distress. Patient was treated for pain in the ED. Lab test results were reviewed and are all nonactionable. Chest x-ray showed no acute cardiopulmonary abnormalities or pneumonitis. EKG shows normal sinus rhythm with a ventricular rate of [address] or T wave abnormalities. Patient's heart score is 0, and patient is PERC negative per Wells criteria. Patient symptoms are likely due to costochondritis, muscle strain, versus GERD complications. Patient was discharged home on medications and advised to follow-up with her primary care physician in 7 to 10 days for reevaluation or return to the ED immediately if symptoms get worse. - Differential Diagnosis ACS; costochondritis; muscle strain; GERD; anxiety; Critical care attestation.: If time is entered above; I have spent that time in minutes in the direct care of this critically ill patient, excluding procedure time. ED Disposition Clinical Impression: Intermittent left-sided chest pain, Acute nonspecific chest pain with low risk of coronary artery disease, Acute costochondritis GERD (gastroesophageal reflux disease) Qualifiers: Esophagitis presence: esophagitis presence not specified Qualified Code(s): K21.9 - Gastro-esophageal reflux disease without esophagitis Disposition: HOME / SELF CARE / HOMELESS Is pt being admited?: No Does the pt Need Aspirin: No Condition: Stable Instructions: Costochondritis, [id number], Chest Wall Pain, Cwgq-[id number], Nonspecific Chest Pain, Adult, Rsuv-[id number], Gastroesophageal Reflux Disease, Adult, [id number]-[id number], Chest Pain (ED) Additional Instructions: All lab test results are reviewed and are all nonactionable. Therefore your symptoms are likely musculoskeletal and not due to a cardiac condition since you do not have any cardiac risk factors. Therefore take medication as needed for pain, drink plenty of fluids, follow-up with your primary care physician in 5 to 7 days for reevaluation. Return to the ED immediately if symptoms get worse. Prescriptions: diphenhydrAMINE [Benadryl CAP] 25 mg PO Q6HR PRN #30 capsule PRN Reason: Itching predniSONE [Deltasone] 40 mg PO QDAY #10 tab Ibuprofen [Motrin] 600 mg PO Q8H PRN #30 tablet PRN Reason: Pain Famotidine [Pepcid] 20 mg PO BID #60 tablet Referrals: [facility] [Provider Group] - 7-10 days Forms: Work/School Release Form(ED) Time of Disposition: 01:14 Print Language: WOLOF
--- NOTE | 2022-01-04 09:21 | Electrocardiograph Report ---
[facility] Test Date: 2022-01-03 Test Time: 19:31:57 Pat Name: CLEVE BOONE Department: Room: Gender: F Mortgage Processing Clerk: RKOKU : 1985 Requested By: WILFRIDO FARRELL Order Number: [id number] Reading MD: Isaiah Hsu Measurements Intervals Burton Rate: 83 P: 42 DC: 140 QRS: 70 QRSD: 76 T: 32 QT: 368 QTc: 434 Interpretive Statements Sinus rhythm No previous ECG available for comparison Electronically Signed On 01-04-2022 9:21:08 EDT by Isaiah Hsu
== END 2022-01-04 01:29 | disposition home or self-care (01) ==
LOC: ED 19:09
DX: R07.89 Other chest pain (principal); K21.9 Gastro-esophageal reflux disease without esophagitis; R07.9 Chest pain, unspecified; F17.200 Nicotine dependence, unspecified, uncomplicated
CPT/HCPCS: 36415; 71046; 80053; 84484; 85025; 93005; 99284